=== PATIENT | female | born 1940 | race Asian ===

== ENCOUNTER 2017-10-23 13:08 | Inpatient (IN) | payer MEDICARE, MEDICAID ==
[~2017-10-23] VITALS: Ht 160 cm; Wt 72.6 kg
[2017-10-23] VITALS (7 sets, daily range): BP systolic 121–157; BP diastolic 67–77
--- NOTE | 2017-10-23 13:59 | Emergency Room Report ---
History of Present Illness General Chief Complaint: Multiple Trauma/Fall Source: Patient Present Illness HPI Patient present with fall and trauma to the left forehead area Patient reports that she was coming down stairs at her [employer] Patient felt weak and lightheaded As she tried to grab a rail she missed the rail and fell to the ground Patient had pain to the left forehead and the left femoral area Denies any abdominal pain denies any focal weakness Pain to the left forehead is 4 out of 10 Allergies: Coded Allergies: No Known Allergies (Unverified , 10/23/17) Patient History Past Medical History: see triage record Pertinent Family History: none Now: No Reviewed Nursing Documentation: PMH: Agreed; PSxH: Agreed Nursing Documentation-PMH Past Medical History: No History, Except For Hx Cardiac Problems: Yes - High cholesterol Hx Hypertension: Yes Review of Systems All Other Systems: negative except mentioned in HPI Physical Exam Vital Signs Date Time Temp Pulse Resp B/P (MAP) Pulse Ox O2 Delivery O2 Flow Rate FiO2 10/23/17 13:20 97.6 82 18 151/82 99 Room Air 97.5 Sp02 EP Interpretation: reviewed, normal General Appearance: well appearing, no apparent distress Head: other - 1 x 1 cm hematoma left mid forehead Eyes: bilateral eye PERRL ENT: normal pharynx, no angioedema Neck: supple Respiratory: lungs clear, normal breath sounds Cardiovascular #1: regular rate, rhythm, no edema Gastrointestinal: non tender, soft Musculoskeletal: normal inspection Neurologic: normal inspection, alert, oriented x3, responsive Skin: other - Half centimeter laceration left forehead Lymphatic: no adenopathy Procedures Laceration/Wound Repair Laceration/Wound Repair : Consent: Verbal Wound Location: head Wound's Depth, Shape: superficial Wound Length (cm): 0 Wound Explored: clean Irrigated w/ Saline (ccs): 200 Betadine Prep?: Yes Wound Debrided: minimal Wound Repaired With: sutures Suture Size/Type: 6:0 Number of Sutures: 3 Layer Closure?: No Sterile Dressing Applied?: Yes Splint Applied?: No Patient Tolerated: Well Complications: None Medical Decision Making Diagnostic Impression: Primary Impression: Head injury Additional Impressions: Weakness Dizziness Near syncope ER Course Patient is a fairly complex patient with multiple differential to consideration including but not limited to cardiac cardiopulmonary and vascular emergencies Patient initially presents with reports of what sounds to be mechanical fall However with further discussions patient reiterates more sensation of weakness At this time she also has increased dizziness Given the patient's head injury and the complaints patient was admitted for further inpatient care Labs Test 10/23/17 14:10 10/23/17 14:30 White Blood Count 5.1 K/UL (4.8-10.8) Red Blood Count 4.43 M/UL (4.20-5.40) Hemoglobin 14.2 G/DL (12.0-16.0) Hematocrit 41.5 % (37.0-47.0) Mean Corpuscular Volume 94 FL (80-99) Mean Corpuscular Hemoglobin 32.1 PG (27.0-31.0) Mean Corpuscular Hemoglobin Concent 34.3 G/DL (32.0-36.0) Red Cell Distribution Width 11.1 % (11.6-14.8) Platelet Count 189 K/UL (150-450) Mean Platelet Volume 7.6 FL (6.5-10.1) Neutrophils (%) (Auto) 65.1 % (45.0-75.0) Lymphocytes (%) (Auto) 24.9 % (20.0-45.0) Monocytes (%) (Auto) 8.0 % (1.0-10.0) Eosinophils (%) (Auto) 0.7 % (0.0-3.0) Basophils (%) (Auto) 1.3 % (0.0-2.0) Sodium Level 140 MMOL/L (136-145) Potassium Level 3.8 MMOL/L (3.5-5.1) Chloride Level 103 MMOL/L (98-107) Carbon Dioxide Level 28 MMOL/L (21-32) Anion Gap 10 mmol/L (5-15) Blood Urea Nitrogen 14 mg/dL (7-18) Creatinine 0.6 MG/DL (0.55-1.30) Estimat Glomerular Filtration Rate mL/min (>60) Glucose Level 111 MG/DL (74-106) Calcium Level 9.3 MG/DL (8.5-10.1) Total Bilirubin 0.6 MG/DL (0.2-1.0) Aspartate Amino Transf (AST/SGOT) 53 U/L (15-37) Alanine Aminotransferase (ALT/SGPT) 30 U/L (12-78) Alkaline Phosphatase 40 U/L (46-116) Total Creatine Kinase 468 U/L (26-308) Creatine Kinase MB 4.4 NG/ML (0.0-3.6) Creatine Kinase MB Relative Index 0.9 Troponin I 0.011 ng/mL (0.000-0.056) Total Protein 8.4 G/DL (6.4-8.2) Albumin 4.1 G/DL (3.4-5.0) Globulin 4.3 g/dL Albumin/Globulin Ratio 1.0 (1.0-2.7) Urine Color Pale yellow Urine Appearance Clear Urine pH 8 (4.5-8.0) Urine Specific [place] 1.010 (1.005-1.035) Urine Protein Negative (NEGATIVE) Urine Glucose (UA) Negative (NEGATIVE) Urine Ketones Negative (NEGATIVE) Urine Occult Blood Negative (NEGATIVE) Urine Nitrite Negative (NEGATIVE) Urine Bilirubin Negative (NEGATIVE) Urine Urobilinogen Normal MG/DL (0.0-1.0) Urine Leukocyte Esterase Negative (NEGATIVE) EKG Diagnostic Results Rate: normal Rhythm: NSR ST Segments: no acute changes Rhythm Strip Diag. Results EP Interpretation: yes Rate: 77 Rhythm: NSR, no PVC's, no ectopy Chest X-Ray Diagnostic Results Chest X-Ray Diagnostic Results : Chest X-Ray Ordered: Yes # of Views/Limited/Complete: 1 View Indication: Chest Pain EP Interpretation: Yes Interpretation: no consolidation, no effusion, no pneumothorax Impression: No acute disease Electronically Signed by: Rubio Valenzuela DO Other X-Ray Diagnostic Results Other X-Ray Diagnostic Results : X-Ray ordered: Left femur # of Views/Limited Vs Complete: 2 View Indication: Pain EP Interpretation: Yes Interpretation: no dislocation, no soft tissue swelling, no fractures Impression: No acute disease Electronically Signed by: Rubio Valenzuela DO CT/MRI/US Diagnostic Results CT/MRI/US Diagnostic Results : Impression CT head no acute disease Last Vital Signs Date Time Temp Pulse Resp B/P (MAP) Pulse Ox O2 Delivery O2 Flow Rate FiO2 10/23/17 13:20 97.6 82 18 151/82 99 Room Air 97.5 Status: improved Disposition: ADMITTED INPATIENT Condition: Serious Rubio Valenzuela DO Oct 23, 2017 13:59
[2017-10-23] MEDS ORDERED: Sodium Chloride 500ML 500 ML IV ONE (14:15)
[2017-10-23 14:27] LABS: BASOPHILS % (AUTO) 1.3 % (0.0-2.0); EOSINOPHILS % (AUTO) 0.7 % (0.0-3.0); HEMATOCRIT 41.5 % (37.0-47.0); HEMOGLOBIN 14.2 G/DL (12.0-16.0); LYMPHOCYTES % (AUTO) 24.9 % (20.0-45.0); MEAN CORPUSCULAR VOLUME 94 FL (80-99); NEUTROPHILS % (AUTO) 65.1 % (45.0-75.0); PLATELET COUNT 189 K/UL (150-450); RED BLOOD COUNT 4.43 M/UL (4.20-5.40); RED CELL DISTRIBUTION WIDTH 11.1 % (11.6-14.8); WHITE BLOOD COUNT 5.1 K/UL (4.8-10.8)
[2017-10-23 14:42] LABS: ANION GAP 10 mmol/L (5-15); BLOOD UREA NITROGEN 14 mg/dL (7-18); CALCIUM 9.3 MG/DL (8.5-10.1); CARBON DIOXIDE 28 MMOL/L (21-32); CHLORIDE 103 MMOL/L (98-107); CREATININE 0.6 MG/DL (0.55-1.30); POTASSIUM 3.8 MMOL/L (3.5-5.1); SODIUM 140 MMOL/L (136-145)
[2017-10-23 14:48] LABS: APPEARANCE,URINE CLEAR; BILIRUBIN, URINE NEGATIVE (NEGATIVE); COLOR,URINE PALE YELLOW; GLUCOSE, URINE (UA) NEGATIVE (NEGATIVE); KETONES,URINE NEGATIVE (NEGATIVE); LEUKOCYTE ESTERASE ,URINE NEGATIVE (NEGATIVE); NITRITE,URINE NEGATIVE (NEGATIVE); PH,URINE 8 (4.5-8.0); PROTEIN,URINE NEGATIVE (NEGATIVE); UROBILINOGEN,URINE NORMAL MG/DL (0.0-1.0)
[2017-10-23 14:57] LABS: ALANINE AMINOTRANSFERASE 30 U/L (12-78); ALBUMIN 4.1 G/DL (3.4-5.0); ALKALINE PHOSPHATASE 40 U/L (46-116); ASPARTATE AMINO TRANSFERASE 53 U/L (15-37); BILIRUBIN,TOTAL 0.6 MG/DL (0.2-1.0); CKMB 4.4 NG/ML (0.0-3.6); CREATINE KINASE 468 U/L (26-308)
[2017-10-23] MEDS ORDERED: Acetaminophen 650 MG SUPP RECTAL PRN (17:00)
[2017-10-23] MEDS ORDERED: AMLODIPINE BESYL5 MG ORAL (17:42)
[2017-10-23] MEDS ORDERED: OYSTER SHELL C500 MG PO (17:43)
[2017-10-23] MEDS ORDERED: ATORVASTATIN CA20 MG ORAL (17:44)
[2017-10-23] MEDS ORDERED: NEXIUM40 MG ORAL (17:46)
[2017-10-23] MEDS ORDERED: VITAMIN D1000 UNI1 ORAL (17:47)
[2017-10-23] MEDS ORDERED: CREON DR 24,001 EACH PO (17:49)
[2017-10-23] MEDS ORDERED: FERROUS SULFAT325 MG ORAL (17:50)
[2017-10-23] MEDS ORDERED: FOLIC ACID1 MG ORAL (17:51)
[2017-10-23] MEDS ORDERED: Heparin 5000 units/ml inj SUBQ SCH (21:00)
[2017-10-23] MEDS: 1/2NS w/KCl 20mEq 1000ml 1,000 ML IV SCH (23:14)
[2017-10-23] MEDS ORDERED: Acetaminophen 500mg (ES) tab ORAL PRN (23:30)
[2017-10-24] VITALS: BP 131/71
[2017-10-24 04:00] VITALS: BP 131/72
[2017-10-24] MEDS: 1/2NS w/KCl 20mEq 1000ml 1,000 ML IV SCH ×2 (07:08→08:08)
--- NOTE | 2017-10-24 07:45 | History and Physical Report ---
DATE OF ADMISSION: 10/23/2017 CHIEF COMPLAINT: Multiple falls and trauma. HISTORY OF PRESENT ILLNESS: This is a 77-year-old [place] female, who re-presented to the emergency department, status post multiple falls and trauma. PAST MEDICAL HISTORY: 1. Hypertensive cardiovascular disease. 2. Anemia. MEDICATIONS: Home medications, amlodipine, atorvastatin, calcium carbonate, cholecalciferol, omeprazole, oral iron, folic acid, and pancreatic enzymes. ALLERGIES: No known drug allergies. FAMILY HISTORY: Unremarkable. SOCIAL HISTORY: She lives at home. HABITS: She is nonsmoker and nondrinker. There is no history of illicit drug abuse. REVIEW OF SYSTEMS: HEENT: Hearing and eyesight are normal. ENDOCRINE: No history of diabetes, thyroid, or adrenal problems. RESPIRATORY: She denies shortness or breath, cough, or hemoptysis. CARDIOVASCULAR: She denies chest pain or palpitations. GASTROINTESTINAL: No history of hematochezia, melena, hematemesis, diarrhea, or constipation. PHYSICAL EXAMINATION: GENERAL: This is an elderly Japanese female, who is in no acute distress. VITAL SIGNS: Blood pressure 131/72, pulse 77 and regular, respirations 20, and temperature 97.3 Fahrenheit. HEENT: Head is normocephalic and atraumatic. Pupils are equal, round, and reactive to light and accommodation consensually. NECK: Supple. Trachea midline. There was no lymphadenopathy or thyromegaly. LUNGS: Clear to auscultation and percussion. HEART: Regular rate and rhythm without rubs, murmurs, or gallops. ABDOMEN: Soft and nontender. Bowel sounds were active. EXTREMITIES: No clubbing, cyanosis, or edema. NEUROLOGIC: She is alert and oriented x4. Cranial nerves II through XII intact. LABORATORY AND ANCILLARY DATA: CBC within normal limits. Serum chemistry, glucose 111. AST 53, CPK 468. Troponin level 0.011. Urinalysis within normal limits. CAT scan of the head, no acute disease. ASSESSMENT: Syncopal episode, etiology unclear. Suspect orthostatic hypotension due to Norvasc, rule out other etiologies. PLAN: 1. Check orthostatic vital signs. 2. Check 2D echo and carotid duplex. Rubin Kay M.D. DR: ADRYAN JOB#: [id number] CC:
[2017-10-24 08:00] VITALS: BP 134/87
--- NOTE | 2017-10-24 08:42 | Diagnostic Imaging Report ---
Indication: Trauma Technique: Continuous helical CT scanning of the head was performed utilizing automated exposure control without intravenous contrast material. Axial and coronal reconstructions were obtained. Comparison: None CT dose: Total DLP 1393.68 mGycm; CTDI vol 70.38 mGy Findings: There is no acute intracranial hemorrhage, mass effect or cortical edema. The ventricles, cisterns and sulci are mildly prominent consistent with age-related atrophy. Mild periventricular hypoattenuation is seen, a nonspecific finding most commonly related to sequela of chronic microvascular ischemic change. Atherosclerotic vascular calcifications noted. Visualized mastoid air cells and paranasal sinuses are unremarkable. There is a left frontoparietal soft tissue swelling/scalp hematoma/laceration with some small foci of subcutaneous gas. No skull fracture. IMPRESSION: Left frontoparietal scalp hematoma/laceration. No associated skull fracture. No evidence of acute intracranial hemorrhage, mass effect or cortical edema. This corresponds with the statrad preliminary report. The CT scanner at [facility] is accredited by the [employer] and the scans are performed using protocols designed to limit radiation exposure to as low as reasonably achievable to attain images of sufficient resolution adequate for diagnostic evaluation.
[2017-10-24] MEDS ORDERED: Acetaminophen 650 MG SUPP RECTAL PRN (09:00)
[2017-10-24] MEDS: Heparin 5000 units/ml inj SUBQ SCH ×2 (09:33→21:26)
[2017-10-24] MEDS: Acetaminophen 500mg (ES) tab ORAL PRN (10:09)
--- NOTE | 2017-10-24 11:51 | Diagnostic Imaging Report ---
Indication: Chest pain Technique: XRAY Chest 1v Comparison: None Findings: Heart is enlarged. Aorta is ectatic, calcified and tortuous. Mediastinal contours are sharp. Pacemaker in place. There is no focal airspace consolidation, pleural effusion or pneumothorax. There are degenerative changes of the spine. No definite acute osseous abnormality is seen. IMPRESSION: Cardiomegaly. Pacemaker in place. No focal airspace consolidation, pleural effusion or pneumothorax. Aortic atherosclerosis. Study obtained via the emergency department however patient admitted to the hospital at time of dictation of the final report.
[2017-10-24 12:00] VITALS: BP 136/72
--- NOTE | 2017-10-24 13:49 | Diagnostic Imaging Report ---
Indication: Pain Technique: XRAY Femur 2v L Comparison: None Findings: There is no acute fracture or dislocation. There is mild degenerative change of the hip and knee joints. There is evidence of surgical mesh in the left inguinal area, possibly prior hernia repair. Impression: No evidence of acute fracture or dislocation. Additional findings as above.
[2017-10-24 16:00] VITALS: BP 141/74
[2017-10-24 20:00] VITALS: BP 143/75
[2017-10-25] VITALS: BP 139/80
[2017-10-25] MEDS: 1/2NS w/KCl 20mEq 1000ml 1,000 ML IV SCH ×2 (00:04→10:55)
[2017-10-25 04:00] VITALS: BP 134/73
[2017-10-25 08:00] VITALS: BP 139/75
[2017-10-25] MEDS: Heparin 5000 units/ml inj SUBQ SCH (08:33)
[2017-10-25] MEDS: Acetaminophen 500mg (ES) tab ORAL PRN (08:36)
[2017-10-25] MEDS ORDERED: Miralax 17gm pkt ORAL PRN (08:45)
--- NOTE | 2017-10-25 09:01 | General Progress Note ---
Assessment/Plan Assessment/Plan Syncope - w/u in progress. Subjective Allergies: Coded Allergies: No Known Allergies (Unverified , 10/23/17) Subjective No new c/o Objective Last 24 Hour Vital Signs Date Time Temp Pulse Resp B/P (MAP) Pulse Ox O2 Delivery O2 Flow Rate FiO2 10/25/17 08:36 98.7 10/25/17 04:00 73 10/25/17 04:00 98.7 80 15 134/73 97 Room Air 98.7 10/25/17 00:00 98.5 84 16 139/80 98 Room Air 98.5 10/25/17 00:00 75 10/24/17 20:00 98.4 85 15 143/75 94 Room Air 98.4 10/24/17 20:00 85 87 99 10/24/17 20:00 79 10/24/17 16:00 80 10/24/17 16:00 97.3 80 20 141/74 97 Room Air 97.3 10/24/17 12:00 79 10/24/17 12:00 97.4 79 20 136/72 95 Room Air 97.4 10/24/17 11:08 97.3 10/24/17 09:25 93 10/24/17 09:20 78 10/24/17 09:15 71 Intake and Output 10/24/17 10/25/17 19:00 07:00 Intake Total 1835 ml 925 ml Output Total 300 ml Balance 1535 ml 925 ml Intake Oral 1010 ml 100 ml IV Total 825 ml 825 ml Output Urine Total 300 ml # Voids 9 3 Height (Feet): 5 Height (Inches): 3.00 Weight (Pounds): 160 Objective Cv RR Lungs CTA Abd SNT. BS+ E No cce Rubin Kay MD October 25, 2017 09:01
--- NOTE | 2017-10-25 09:16 | General Progress Note ---
Assessment/Plan Assessment/Plan Syncope - w/u in progress. w/u negative. Syncope m/p due to meds. Subjective Allergies: Coded Allergies: No Known Allergies (Unverified , 10/23/17) Subjective No new c/o Objective Last 24 Hour Vital Signs Date Time Temp Pulse Resp B/P (MAP) Pulse Ox O2 Delivery O2 Flow Rate FiO2 10/25/17 08:36 98.7 10/25/17 04:00 73 10/25/17 04:00 98.7 80 15 134/73 97 Room Air 98.7 10/25/17 00:00 98.5 84 16 139/80 98 Room Air 98.5 10/25/17 00:00 75 10/24/17 20:00 98.4 85 15 143/75 94 Room Air 98.4 10/24/17 20:00 85 87 99 10/24/17 20:00 79 10/24/17 16:00 80 10/24/17 16:00 97.3 80 20 141/74 97 Room Air 97.3 10/24/17 12:00 79 10/24/17 12:00 97.4 79 20 136/72 95 Room Air 97.4 10/24/17 11:08 97.3 10/24/17 09:25 93 10/24/17 09:20 78 Intake and Output 10/24/17 10/25/17 19:00 07:00 Intake Total 1835 ml 925 ml Output Total 300 ml Balance 1535 ml 925 ml Intake Oral 1010 ml 100 ml IV Total 825 ml 825 ml Output Urine Total 300 ml # Voids 9 3 Height (Feet): 5 Height (Inches): 3.00 Weight (Pounds): 160 Objective Cv RR Lungs CTA Abd SNT. BS+ E No cce Rubin Kay MD October 25, 2017 09:16
--- NOTE | 2017-10-25 09:27 | Cardiology Report ---
APPROVED REPORT EXAM: Two-dimensional and M-mode echocardiogram with Doppler and color Doppler. INDICATION Syncope M-Mode DIMENSIONS IVSd1.1 (0.7-1.1cm)Left Atrium (MM)3.1 (1.6-4.0cm) LVDd4.5 (3.5-5.6cm)Aortic Root3.0 (2.0-3.7cm) PWd0.9 (0.7-1.1cm)Aortic Cusp Exc.1.8 (1.5-2.0cm) LVDs3.4 (2.5-4.0cm) PWs1.4 cm Normal left ventricular chamber size, systolic function and wall motion. Left ventricular ejection fraction estimated to be 55 %. Borderline left ventricular hypertrophy. Anterior Echo-free space, may be due to pericardial fat or effusion. All other cardiac chamber sizes are within normal limits. Focal aortic valve sclerosis with adequate cusp excursion. Thickened mitral valve leaflets with normal excursion. Mild mitral annulus and aortic root calcification. Pulmonic valve not well visualized. Normal tricuspid valve structure. IVC measures as 1.8 cm with physiological collapse. A color flow and spectral Doppler study was performed and revealed: Mild to moderate aortic insufficiency. Mild mitral regurgitation. Mitral diastolic velocities suggest mild left ventricular diastolic dysfunction (Grade I). Mild tricuspid regurgitation. Tricuspid systolic velocities suggests peak right ventricular systolic pressure of 41 mmHg, consistent with mild pulmonary hypertension. No pulmonic regurgitation present.
--- NOTE | 2017-10-27 14:21 | Discharge Summary ---
Discharge Summary Hospital Course Date of Admission Oct 23, 2017 at 17:09 Date of Discharge October 25, 2017 at 11:29 Admitting Diagnosis Multiple Trauma HPI Beny Prince is a 77 year old female who was admitted on Oct 23, 2017 at 17:09 for Multiple Trauma Hospital Course [id number] Discharge Discharge Disposition Patient was discharged to Home (01) Rosamaria Correa NP October 27, 2017 14:21
--- NOTE | 2017-10-28 15:15 | Discharge Summary 2 SIG ---
DATE OF ADMISSION: 10/23/2017 DATE OF DISCHARGE: 10/25/2017 BRIEF HOSPITAL COURSE: The patient is a 77-year-old Urdu female, who represented to the emergency department status post multiple falls and trauma. She has medical history significant for hypertensive cardiovascular disease and anemia. On evaluation at ED, the patient was noted to have a laceration on the head status post suture and repair at ED. Laceration was 0.5 cm located on the left forehead. She had dizziness. Head CT showed left frontoparietal scalp hematoma/laceration with no associated skull fracture. There was no evidence of acute intracranial hemorrhage, mass effect, or cortical edema. She also had a chest x-ray that showed cardiomegaly with pacemaker in place. There was no focal airspace consolidation, pleural effusion, or pneumothorax. The patient was admitted for syncopal episode. Etiology was unclear. Troponin was 0.011. Urinalysis was within normal limits. CPK was 468. She had an echocardiogram that showed ejection fraction of 55%. Carotid duplex revealed no significant plaque in the common and internal carotid arteries. There was irregular plaque in the bulb on internal and external carotid artery with minimal stenosis; the right and left vertebral arteries bilaterally are without any evidence of stenosis or steal. She also had a femur x-ray negative for acute fracture or dislocation. Workup was negative. Syncope was most probably due to medications. She had stable vital signs. She was given PT and OT. She was eventually discharged home. FINAL DIAGNOSES: Syncope most likely due to medication. DISPOSITION: The patient was discharged home. DISCHARGE MEDICATIONS: Refer to medication list. DISCHARGE INSTRUCTIONS: Follow up with PMD in a week. I have been assigned to dictate discharge summary on this account and I was not involved in the patient's management. Rosamaria Correa N.P. DR: JIA JOB#: [id number] CC: KYLEE
--- NOTE | 2017-10-28 15:33 | Cardiology Report ---
APPROVED REPORT EKG Measurement Heart [id number] Normal sinus rhythm Prolonged QT Abnormal ECG
--- NOTE | 2017-10-31 10:14 | Diagnostic Imaging Report ---
APPROVED REPORT CPT Code: 13997 Vascular Symptoms Syncope Doppler Spectral Velocity Analysis RightLeft carotid arteries. ECA - Imaging reveals irregular plaque in the external carotid artery. The Doppler signal indicates the degree of stenosis is minimal (10%) in the external carotid artery. VERTEBRAL - The vertebral artery is patent, without evidence of stenosis or steal. LEFT SIDE: CCA - Imaging reveals no significant plaque in the common carotid artery. carotid arteries. The Doppler signal indicates the degree of stenosis is minimal (10%) in the BULB, internal carotid artery, and in the external carotid artery. VERTEBRAL - The vertebral artery is patent, without evidence of stenosis or steal.
== END 2017-10-25 11:29 | disposition home or self-care (01) | DRG 312 ==
LOC: EDBD 13:08 → EMR 13:58 → EDBEDREQ 17:00 → 4W 17:09 → 2E 21:52
PROC: 0HQ0XZZ Repair Scalp Skin, External Approach (ICD-10-PCS; principal; 2017-10-23)
DX: R55 Syncope and collapse (principal); T46.1X5A Adverse effect of calcium-channel blockers, initial encounter; I11.9 Hypertensive heart disease without heart failure; S01.01XA Laceration without foreign body of scalp, initial encounter; W10.8XXA Fall (on) (from) other stairs and steps, initial encounter; Y92.22 Religious institution as the place of occurrence of the external cause
CPT/HCPCS: 36415; 70450; 71045; 80053; 81003; 82550; 82553; 84484; 85025; 93005; 93306; 93880; 99285